=== PATIENT | female | born 1985 ===

== ENCOUNTER 2018-07-14 18:11 | Emergency (ER) | payer SELFPAY ==
[2018-07-14 18:34] VITALS: BP 107/62; PULSE 68; RESP 20; TEMP 98.5; O2SAT 100
[2018-07-14] MEDS ORDERED: Amoxicillin-Clav 875-125 mg Tab PO STA (18:48)
--- NOTE | 2018-07-14 18:52 | C.PDOC ---
History Of Present Illness 32 year old female presents to the ED with c/o sore throat since last night with associated subjective fever. Patient has been taking Tylenol with minimal relief. Patient rates her pain 8/10. She denies sick contacts, headache, dizziness, shortness of breath, cough, chest pain, nausea, vomiting and abdominal pain. Time Seen by Provider: 07/14/18 18:40 Chief Complaint (Nursing): ENT Problem History Per: Patient History/Exam Limitations: None Onset/Duration Of Symptoms: Hrs Current Symptoms Are (Timing): Still Present Past Medical History Reviewed: Historical Data, Nursing Documentation, Vital Signs Vital Signs: Last Vital Signs Temp 98.5 F 07/14/18 18:31 Pulse 68 07/14/18 18:31 Resp 20 07/14/18 18:31 BP 107/62 07/14/18 18:31 Pulse Ox 100 07/14/18 18:31 - Medical History PMH: No Chronic Diseases Surgical History: No Surg Hx Family History: States: Unknown Family Hx - Social History Hx Tobacco Use: No Hx Alcohol Use: No Hx Substance Use: No - Immunization History Hx Tetanus Toxoid Vaccination: No Hx Influenza Vaccination: Yes Hx Pneumococcal Vaccination: No Review Of Systems Constitutional: Positive for: Fever ENT: Positive for: Throat Pain Cardiovascular: Negative for: Chest Pain Respiratory: Negative for: Cough, Shortness of Breath Gastrointestinal: Negative for: Nausea, Vomiting, Abdominal Pain Neurological: Negative for: Headache, Dizziness Physical Exam - Physical Exam Appears: Non-toxic, No Acute Distress Skin: Normal Color, Warm, Dry Head: Atraumatic, Normacephalic Eye(s): bilateral: Normal Inspection Ear(s): Bilateral: Normal Nose: Normal, No Discharge Oral Mucosa: Moist Throat: Erythema, Other (moderately enlarged tonsils with diffuse white exudates ) Neck: Supple Chest: Symmetrical, No Deformity, No Tenderness Cardiovascular: Rhythm Regular, No Murmur Respiratory: Normal Breath Sounds, No Rales, No Rhonchi, No Wheezing Extremity: Normal ROM Neurological/Psych: Oriented x3, Normal Speech, Normal Cognition ED Course And Treatment O2 Sat by Pulse Oximetry: 100 Medical Decision Making Medical Decision Making: Progress: Augmentin PO, Motrin PO and Prednisone PO given. Disposition Counseled Patient/Family Regarding: Diagnosis, Need For Followup, Rx Given - Disposition Referrals: at [facility] [Outside] Disposition: HOME/ ROUTINE Disposition Time: 19:12 Condition: IMPROVED Additional Instructions: Continue Augmentin, Prednisone, and Motrin as instructed Salt water gargles 4 times a day Rest and Hydration Follow up in Clinic in 1-2 days Return to ED if symptoms worsen Prescriptions: Acetaminophen [Tylenol] 325 mg PO Q6 PRN #30 capsule PRN Reason: Fever >100.4 F Amoxicillin/Clavulanate [Augmentin 875 MG-125 MG] 1 tab PO BID #19 tab Ibuprofen [Motrin] 600 mg PO Q6 PRN #30 tab PRN Reason: Fever >100.4 F predniSONE [predniSONE Tab] 60 mg PO DAILY #15 tab Instructions: Strep Throat (DC) Forms: [employer] [place] (Japanese) Print Language: EMIRATI - Clinical Impression Clinical Impression: Sore throat, Strep pharyngitis
[2018-07-14] MEDS ORDERED: Amoxicillin-Clav 875-125 mg Tab PO ONE (18:57)
== END 2018-07-14 19:24 | disposition home or self-care (01) ==
LOC: C.ER 18:11
DX: J02.0 Streptococcal pharyngitis (principal)